=== PATIENT | male | born 1975 | race Two or more races ===

== ENCOUNTER 2017-05-14 07:22 | Outpatient (CLI) | payer OTHER | END 2017-05-14 07:43 | disposition home or self-care (01) | LOC: LAB 07:22 | DX: I11.9 Hypertensive heart disease without heart failure (principal); M62.81 Muscle weakness (generalized); E78.2 Mixed hyperlipidemia; Z12.11 Encounter for screening for malignant neoplasm of colon ==

== ENCOUNTER 2017-05-14 07:34 | Outpatient (CLI) | payer OTHER | END 2017-05-14 07:45 | disposition home or self-care (01) | LOC: RAD 07:34 | DX: M54.5 Low back pain (principal) ==